=== PATIENT | male | born 1985 | race Caucasian/White ===

== ENCOUNTER 2020-06-16 09:18 | Emergency (ER) | payer MEDICAID, SELFPAY ==
[2020-06-16 09:18] VITALS: BP 131/93; PULSE 109; RESP 17; TEMP 36.1; O2SAT 98; BMI 29.8
--- NOTE | 2020-06-16 09:27 | ED.VIS.GEN ---
History of Present Illness Chief Complaint: Abd Pain Informant: Patient Narrative: 35-year-old male with past medical history of hepatitis C presents with right upper quadrant pain. States is been worse over the past 2 to 3 days. Patient recently moved from [place] approximately 3 to 4 days ago. States that he does not have his medications he was taking in [place] including a mood stabilizer as well as trazodone for insomnia. States he has been slightly constipated. Denies any fever, chills, cough, chest pain, shortness of breath, urinary symptoms, nausea, vomiting, hematochezia, melena. Patient is a current smoker. Denies any current alcohol or drug abuse. Past Medical History - Allergies and Home Meds Allergies/Adverse Reactions: Allergies Penicillins Allergy (Verified 06/16/20 09:18) Anaphylaxis Primary Care Physician: NOT,DEFINED [NON-STAFF] - Prior records reviewed: Yes Past Medical History: - - hepatitis C Surgical History: no surgical history Lives: Alone Smoking Status: Current every day smoker Alcohol: None Drugs: None Review of Systems General: Denies: Chills, Fever, Sweats Eyes: Denies: Visual changes - bilaterally, Diplopia ENT: Denies: Rhinorrhea, Sore throat Cardiovascular: Denies: Chest pain, Palpitations Respiratory: Denies: Dyspnea, Cough, Dyspnea on exertion Gastrointestinal: Reports: Abdominal pain. Denies: Nausea, Vomiting, Diarrhea, Melena, Hematochezia Genitourinary: Denies: Dysuria, Hematuria, Frequency Musculoskeletal: Denies: Back pain, Extremity Pain Skin: Denies: Rash, Wounds Neurological: Denies: Headache, Weakness, Numbness Physical Exam Vital Signs/Narrative: Vital Signs Temp Pulse Resp BP Pulse Ox 06/16/20 09:18 97.0 F L 109 H 17 131/93 H 98 Inital Vital Signs reviewed: Yes General: Well nourished, Well developed, No Acute Distress Head: Normocephalic, Atraumatic Eyes: Perrl, EOMI ENT: Moist mucous membranes, No rhinorrhea Neck: Supple, Nontender Cardiovascular: Regular rate, Regular rhythm, No murmurs Respiratory: No distress, CTA bilaterally, Chest nontender Abdomen: Soft, Nondistended, Normal bowel sounds, - - RUQ pain on palpation. Negative murphys sign. Back: Nontender, Normal Inspection Extremities: Nontender, No edema Skin: Normal color, No rash Neurological: Alert, Oriented x3, Cranial nerves II-XII grossly intact, Normal Strength, Normal Sensation Psychological: Normal affect, Normal Mood Diagnostic/Tx/Re-eval Clinical Impression(s) from Imaging Studies Abdomen Ultrasound 06/16/20 10:01 IMPRESSION: Fatty infiltration of the liver. Electronically Signed: Humberto Bradley, at 11:07 EST , Service support , Laboratory Data 06/16/20 06/16/20 06/16/20 09:34 09:34 09:37 WBC 4.3 L RBC 4.81 Hgb 15.3 Hct 43.9 MCV 91.3 MCH 31.8 MCHC 34.9 RDW Std Deviation 39.3 RDW Coeff of Aletha 11.6 Plt Count 184 MPV 9.0 Immature Gran % (Auto) 0.900 Neut % (Auto) 43.5 L Lymph % (Auto) 36.2 Mclean % (Auto) 11.3 H Eos % (Auto) 7.4 H Baso % (Auto) 0.7 Absolute Neuts (auto) 1.9 L Absolute Lymphs (auto) 1.57 Nucleated RBC % 0 Sodium 141 Potassium 3.9 Chloride 113 H Carbon Dioxide 24.0 Anion Gap 4 L BUN 16 Creatinine 0.87 Estim Creat Clear Calc 108.98 Est GFR (MDRD) Af Amer 131 Est GFR (MDRD) Non-Af 108 BUN/Creatinine Ratio 18.5 Glucose 115 H Calcium 8.4 L Total Bilirubin 0.40 AST 217 H ALT 213 H Alkaline Phosphatase 167 H Total Protein 7.4 Albumin 3.6 Globulin 3.8 Albumin/Globulin Ratio 0.9 Lipase 394 H Urine Color Yellow Urine Clarity Sl. Cloudy Urine pH 5.0 Ur Specific [place] 1.030 Urine Protein 15 H Urine Glucose (UA) Normal Urine Ketones 5 H Urine Occult Blood Negative Urine Nitrite Negative Urine Bilirubin Negative Urine Urobilinogen 1 H Ur Leukocyte Esterase 25 H Urine RBC 0 SEEN Urine WBC 0-5 SEEN Ur Squamous Epith Cells 0-5 SEEN Urine Bacteria 1+ Urine Mucus 0 SEEN - Medical Decision Making Patient appears well and nontoxic. Vital signs within normal limits. Mild tenderness in the right upper quadrant without rebound. Ultrasound shows fatty infiltration of the liver without significant change. Patient does have some transaminitis as well as a mildly elevated lipase. No significant hyperbilirubinemia. Patient has follow-up with the [facility] in approximately 2 weeks. Patient will be given GI follow-up. I will refill his medications of Zyprexa and hydroxyzine as well as trazodone. Patient will also be given Naprosyn for some chronic left-sided knee pain that he has been having. Asked to return for new or worsening symptoms. Patient is agreeable and discharged home in stable condition. Impression: 1. Right upper quadrant pain 2. Medication refill 3. Transaminitis 4. Hepatitis C 5. Left knee pain ED Disposition - Plan for ED Patient: Disposition: Home or Assisted Living Instructions: Hepatitis C, Hepatitis C: Protecting Your Liver Prescriptions: hydrOXYzine tablet [Atarax tablet] 10 mg PO TID PRN PRN #20 tab PRN Reason: Anxiety Prescription Printed traZODone [Desyrel] 50 mg PO QHS #20 tab Prescription Printed Naproxen [Naprosyn] 500 mg PO BID #14 tab Prescription Printed Olanzapine [Zyprexa] 10 mg PO QHS #20 tab Prescription Printed Referrals: Kenyon Camacho MD [NON-STAFF] - 5-7 Days
[2020-06-16 09:42] LABS: Mucous, Urine 0 SEEN /hpf (<or=2+); Red Blood Cells-Urine 0 SEEN /hpf (0-5)
[2020-06-16 09:43] LABS: Absolute Lymphocyte Count 1.57 X10^3/uL (0.83-4.51); Absolute Neutrophil Count 1.9 X10^3/uL (2.0-7.7); Basophil# 0.03 X10^3/uL; Basophil% 0.7 % (0-1); Eosinophil# 0.32 X10^3/uL; Eosinophils% 7.4 % (0-5); Hematocrit 43.9 % (40-54); Hemoglobin 15.3 g/dL (13.0-16.5); Lymphocyte # 1.57 X10^3/ul (4.0); Lymphocyte % 36.2 % (19-41); Mean Corp Hgb Conc 34.9 g/dL (32-36); Mean Corpuscular Hgb 31.8 pg (27.0-32.0); Mean Corpuscular Volume 91.3 fL (80-94); Monocyte# 0.49 X10^3/uL; Monocyte% 11.3 % (0-10); NRBC Flagged by Analyzer 0 % (0-5); Neutrophil # 1.89 X10^3/uL (2.7-7.7); Neutrophil % 43.5 % (47-70); Platelet Count 184 K/mm3 (150-450); RBC Distribution Width CV 11.6 % (11.6-14.6); RBC Distribution Width SD 39.3 fl (35.1-43.9); Red Blood Count 4.81 M/mm3 (4.6-6.2); White Blood Count 4.3 K/mm3 (4.4-11.0)
[2020-06-16 09:46] LABS: Color, Urine Yellow (Yellow); Glucose, Dipstick Normal (Normal); Ketone-Dipstick 5 mg/dl (Negative); Leukocyte Esterase-Dipstick 25 /ul (Negative); Nitrite-Dipstick Negative (Negative); Occult Blood-Urine Negative /ul (Negative); Protein-Dipstick 15 mg/dl (Negative); Urine Bilirubin Dipstick Negative (Negative); Urine Clarity Sl. Cloudy (Clear); Urine Urobilinogen 1 mg/dl (Normal)
[2020-06-16 09:54] LABS: Bacteria 1+ /hpf (None Seen); Squamous Epithelial Cells - UA 0-5 SEEN /hpf (0-5); White Blood Cells 0-5 SEEN /hpf (0-5)
[2020-06-16 09:58] LABS: ALB/GLOB Ratio 0.9 RATIO (0.9-2.4); AST(SGOT) 217 U/L (15-37); Alanine Aminotransfer ALT/SGPT 213 U/L (16-61); Albumin, Serum 3.6 g/dL (3.2-5.0); Alkaline Phosphatase 167 U/L (45-117); Anion Gap 4 (5-15); BUN 16 mg/dL (7-18); BUN/Creat Ratio 18.5 RATIO (10-20); Calcium,Total 8.4 mg/dL (8.5-10.1); Chloride 113 mmol/L (98-107); Creatinine, Serum 0.87 mg/dL (0.70-1.30); EST Glomerular Filtration Rate 108 mL/min (>60); Est Glom Filt Rate - Afr Amer 131 mL/min (>60); Estimated Creatinine Clearance 108.98 ml/min; Globulin 3.8 g/dL (2.2-4.2); Glucose 115 mg/dL (74-106); Lipase 394 U/L (73-393); Potassium 3.9 mmol/L (3.5-5.1); Protein, Total 7.4 g/dL (6.4-8.2); Sodium Level 141 mmol/L (136-145)
--- NOTE | 2020-06-16 10:01 | US_ITS ---
STUDY: ABDOMINAL ULTRASOUND - RIGHT UPPER QUADRANT REASON FOR VISIT: Male, 35 years old rug pain . History of hepatitis C. Patient is not fasting. TECHNIQUE: Ultrasound evaluation of the right upper quadrant was performed with real-time and static moya-scale imaging. TECHNICAL QUALITY: Adequate. COMPARISON: None. FINDINGS: Liver: The liver measures 14.9 cm. There is increased echogenicity consistent with fatty infiltration. The bile ducts are within normal limits. There is hepatic color flow. The direction of portal flow is hepatopetal. There is no demonstrated mass lesion. Gallbladder: There is a contracted gallbladder. The gallbladder wall measures 3 mm. There is a negative sonographic Baldwin''s sign. There is no pericholecystic fluid. There are no gallstones. Common Bile Duct (C.B.D.): The common bile duct measures 3 mm. Pancreas: Normal size of the head, body and tail of the pancreas. There is normal echogenicity of the pancreas. There is no demonstrated pancreatic mass or cyst. Right Kidney: Normal size of the right kidney. The right kidney measures 10.3 cm x 5.8 cm x 5.6 cm. Normal renal cortex. The right cortex measures 2 cm. There is no demonstrated renal mass or cyst. There is no right hydronephrosis. US/Abdomen Limited IMPRESSION: Fatty infiltration of the liver. Electronically Signed: Humberto Bradley, at 11:07 EST , Service support ,
[2020-06-16 10:57] VITALS: BP 147/93; PULSE 79; O2SAT 98
== END 2020-06-16 11:27 | disposition home or self-care (01) ==
PROVIDERS: Emergency Provider Emergency Medicine
DX: R10.11 Right upper quadrant pain (principal); B19.20 Unspecified viral hepatitis C without hepatic coma; M25.562 Pain in left knee; R74.01 Elevation of levels of liver transaminase levels; K76.0 Fatty (change of) liver, not elsewhere classified; F17.200 Nicotine dependence, unspecified, uncomplicated; Z76.0 Encounter for issue of repeat prescription
CPT/HCPCS: 76705; 80053; 81001; 83690; 85025; 99283; A4216

== ENCOUNTER 2020-06-21 12:15 | Emergency (ER) | payer MEDICAID, SELFPAY ==
[2020-06-21 12:16] VITALS: BP 150/101; PULSE 93; RESP 16; TEMP 36.2; O2SAT 98; BMI 29.0
--- NOTE | 2020-06-21 12:33 | ED.VISSUMM ---
- ER Visit Summary Date of Service: 06/21/20 Chief Complaint: Left knee and back pain History of Present Illness: The patient is a 35 M who presents with left knee and back pain that began yesterday. Patient states he has a history of torn ACL in his left knee. Patient states he was working yesterday when he twisted. She states his knee buckled and he felt a pull in his low back at that time. Patient denies any radiation of his back pain to his lower leg. Patient describes his pain as sharp. Patient states the pain is worse with certain movements. Patient denies any paresthesias or weakness. Patient has been taking naproxen with no relief of his pain. Patient states he is also been taking Tylenol with no relief. Patient states he does not want to take any opioids for the pain. Physical Examination: Vital signs are stable. Patient is afebrile. Patient is in no acute distress. Musculoskeletal exam reveals diffuse tenderness over the left knee. There is a mild effusion. There is no deformity noted. Range of motion was limited in all motions of the left knee secondary to pain. There is no laxity appreciated, but there is voluntary guarding on examination. There is some mild tenderness and spasm of the left lumbar paraspinal muscles. There is no midline tenderness. There is no bony crepitance or step-off. There is good range of motion of the lumbar spine. Strength is 5/5 bilaterally in the lower extremities. There are no sensory deficits noted. Test Results: X-rays of the left knee were obtained. There were 4 views. On my interpretation, there is no acute fracture. There is no effusion. There is no dislocation. There are no loose bodies noted. There is no soft tissue swelling. Radiologist also interpreted the x-rays and agrees. Emergency Department Course and Treatment: Patient was given injection of Toradol here. Patient was instructed to continue using ice to the area. Patient was given a prescription for meloxicam. Patient was instructed to follow-up with his primary care physician in 5 to 7 days. Patient understood and was agreeable with the plan. All questions were answered. Disposition: Discharge home Impression: 1. Left knee sprain 2. Lumbosacral strain This note was generated with [employer] software. It may contain incorrect words, spelling, and punctuation that were not noted in review of the chart prior to signing ED Disposition - Plan for ED Patient: Disposition: Home or Assisted Living Diagnosis: Left knee sprain, Lumbosacral strain Instructions: ED Back Sprain/Strain, ED Knee Sprain Prescriptions: Meloxicam 15 mg PO DAILY PRN PRN #20 tab PRN Reason: Pain Score 1-10 Prescription Printed Referrals: Divina Valente [NON-STAFF] - 5-7 Days Mango Rivera MD [STAFF PHYSICIAN] - 5-7 Days
[2020-06-21] MEDS: Ketorolac 60 MG/2 ML Vial IM (12:39)
--- NOTE | 2020-06-21 12:55 | RAD_ITS ---
STUDY: X-RAY - LEFT KNEE REASON FOR EXAM: Male, 35 years old. Left knee injury. hx torn ACL. TECHNIQUE: 4 view(s) of the knee. COMPARISON: None. FINDINGS: Normal visualized distal femur. Normal visualized proximal tibia and fibula. Normal proximal tibiofibular articulation. There is no demonstrated fracture. Normal medial femorotibial compartment. Normal lateral femorotibial compartment. Normal patellofemoral articulation. There is no demonstrated joint effusion. The soft tissue structures are unremarkable. RAD/Knee 4 or More Views IMPRESSION: No demonstrated acute osseous changes. Electronically Signed: Randall Metz MD at 13:08 EST Tel , Service support ,
== END 2020-06-21 13:39 | disposition home or self-care (01) ==
PROVIDERS: Emergency Provider Emergency Medicine
DX: S83.92XA Sprain of unspecified site of left knee, initial encounter (principal); S39.012A Strain of muscle, fascia and tendon of lower back, initial encounter; F17.220 Nicotine dependence, chewing tobacco, uncomplicated; X50.1XXA Overexertion from prolonged static or awkward postures, initial encounter; Y93.89 Activity, other specified; Y92.89 Other specified places as the place of occurrence of the external cause; Y99.0 Civilian activity done for income or pay
CPT/HCPCS: 73564; 96372; 99283

== ENCOUNTER → 2020-07-04 11:45 | Outpatient (CLI) | payer MEDICAID, SELFPAY ==
[2020-06-21 12:16] VITALS: BMI 29.0
[2020-07-04 12:54] LABS: Erythrocyte Sedimentation Rate 2 mm/hr (0-20)
[2020-07-04 12:56] LABS: Absolute Lymphocyte Count 1.77 X10^3/uL (0.83-4.51); Absolute Neutrophil Count 3.6 X10^3/uL (2.0-7.7); Basophil# 0.02 X10^3/uL; Basophil% 0.3 % (0-1); Eosinophil# 0.11 X10^3/uL; Eosinophils% 1.8 % (0-5); Hematocrit 46.3 % (40-54); Hemoglobin 15.9 g/dL (13.0-16.5); Lymphocyte # 1.77 X10^3/ul (4.0); Lymphocyte % 28.8 % (19-41); Mean Corp Hgb Conc 34.3 g/dL (32-36); Mean Corpuscular Hgb 31.3 pg (27.0-32.0); Mean Corpuscular Volume 91.1 fL (80-94); Mean Platelet Vol. 9.4 fl (6.2-12.0); Monocyte# 0.62 X10^3/uL; Monocyte% 10.1 % (0-10); NRBC Flagged by Analyzer 0 % (0-5); Neutrophil # 3.59 X10^3/uL (2.7-7.7); Neutrophil % 58.5 % (47-70); Platelet Count 202 K/mm3 (150-450); RBC Distribution Width CV 11.8 % (11.6-14.6); RBC Distribution Width SD 39.2 fl (35.1-43.9); Red Blood Count 5.08 M/mm3 (4.6-6.2); White Blood Count 6.1 K/mm3 (4.4-11.0)
[2020-07-09 14:59] LABS: HIV - WCH Non-Reactive (Nonreactive)
[2020-07-10 14:10] LABS: Chlamydia By Nucleic Acid AMP Negative (Negative); Comment 2b (.); Gonococcus By Nucleic Acid AMP Negative (Negative); HCV Quant. RNA PCR 117000 IU/mL (.)
[2020-07-10 20:38] LABS: HCV log 10 5.068 (.); Treponema palladium Ab (FTA) Non Reactive (Non Reactive)
== END ==
PROVIDERS: Visit Provider Internal Medicine Infectious Disease
DX: B19.20 Unspecified viral hepatitis C without hepatic coma (principal); B18.1 Chronic viral hepatitis B without delta-agent; F19.90 Other psychoactive substance use, unspecified, uncomplicated
CPT/HCPCS: 36415; 85025; 85652; 86703; 86780; 87491; 87522; 87591; 87902